=== PATIENT | male | born 1980 | race Caucasian/White ===

== ENCOUNTER 2020-07-05 15:53 | Emergency (ER) | payer OTHER ==
[~2020-07-05] VITALS: Ht 167.6 cm; Wt 54.4 kg
[2020-07-05] MEDS ORDERED: LANTUS SOL100 UNIT/1 (15:58)
[2020-07-05] MEDS ORDERED: HUMALOG100 UNIT/2 (15:58)
[2020-07-05] MEDS ORDERED: NEURONTIN800 MG (15:58)
== END 2020-07-05 21:47 | disposition home or self-care (01) ==
LOC: ER 15:53
DX: E11.65 Type 2 diabetes mellitus with hyperglycemia (principal); R20.0 Anesthesia of skin

== ENCOUNTER 2020-08-22 21:14 | Emergency (ER) | payer OTHER ==
[~2020-08-22] VITALS: Ht 170.2 cm; Wt 54.0 kg
[~2020-08-22 21:14] MED LIST: HUMALOG100 UNIT/2; LANTUS SOL100 UNIT/1; NEURONTIN800 MG
[2020-08-23] MEDS ORDERED: KEFLEX500 MG PO (02:56)
== END 2020-08-23 03:15 | disposition home or self-care (01) ==
LOC: ER 21:14
DX: E11.65 Type 2 diabetes mellitus with hyperglycemia (principal)

== ENCOUNTER 2020-10-28 23:32 | Inpatient (IN) | payer OTHER ==
[~2020-10-28] VITALS: Ht 165.1 cm; Wt 61.7 kg
[~2020-10-28 23:32] MED LIST changes: +KEFLEX500 MG PO
--- NOTE | 2020-10-29 00:17 | NUR ---
PTE REFIERE VENIR POR MAS REBECCA 20 VOMITOS Y RAHUL EPISODIOS DE DIARREAS EN LAS ULTIMAS 24 HRS. REFIERE LLEVA CON VOMITOS DESDE HACE DOS DISLA.
--- NOTE | 2020-10-29 00:46 | NUR ---
PACIENTE ALERTA Y ORIENTADO EN INNA RAHUL ESFERAS. MR. WHITMAN ORIENTA A PACIENTE SOBRE PROCEDIMIENTO Y TX, REFIERE ENTENDER. EXTRAE MUESTRAS DE LABORATORIO CON MEDIDAS ASEPTICAS Y ADMINISTRA MEDICAMENTOS NED ORDEN MEDICA.
--- NOTE | 2020-10-29 02:00 | NUR ---
SE RECIBE PT ALERTA Y ORIENTADO X3 ESFERAS DESDE OBSERVACION ALYSSA DE EMERGENCIAS. PT REFIERE VOMITOS Y DEBILIDAD MUSCULAR GENERALIZADA DESDE HILARY. PT CON HX DE DM TIPO 1, RECUERDA SER DX EN EDAD ELEMENTAL. INDICA ESTA ES LA 4TA OCACION EN IR A ER POR UN DKA. SE UBICA PT EN UNIDAD DE CRITICO, CUBICULO 2. EN CAMA CON BARANDAS ELEVADAS Y FRENOS COLOCADOS. CONECTADO A MONITOR CARDIACO Y SATUROMETRO DE PULSO. 2 VENOPUNCIONES EN BRAZO ALMA PATENTES AMBOS. SE COMIENZA DRIP DE INSULINA 100U/100ML A BAJAR A 3 ML/HRS POR IVPUMP. SE ADMINISTRAN 2 LITROS DE 0.9NSS FULL DRIP. SE REALIZA EKG Y SE PRESENTA A DR MICHELE. PT TRANQUILO Y SIN DIFICULTAD RESPIRATORIA. SE MANTIENE BAJO OBSERVACION POR CAMBIOS EN YAO.
--- NOTE | 2020-10-29 06:06 | NUR ---
PT ALERTA Y ORIENTADO X3 ESFERAS, SE LU MUESTRAS DE MAKSIM CON TECNICAS ASEPTICAS Y SE ENVIAN A LABORATORIO. PT TRANQUILO Y SIN DIFICULTAD RESPIRATORIA. AL MOMENTO S/V ESTABLES. SE DISMINUYE DRIP DE HUMULINA 100U/100ML A 1 ML/HRS POR ORDEN MEDICA DE DR MICHELE. MR CONTRERAS REALIZA ABG, RESULTARON DENTRO LOS PARAMETROS NORMALES.
--- NOTE | 2020-10-29 07:25 | NUR ---
07:AM SE RECIBE PACIENTE MASCULINO DE 40 ANOS DE EDAD UBICADO EN AREA DE CRITICO EN CAMA CON BARANDAS ELEVADAS. PACIENTE AL MOMENTO ES ENTREGADO POR RN- ELDON CUAL ORIENTA SOBRE EL LEA. PACIENTE TIENE ORDEN DE CONSULTA CON MEDIDICNA INTERNA. AL MOEMTNO EL MISMO SE ENCUENTRA CONECTADO A MONITOR CARDIACO Y OXIMETRIA DE PULSO. PACIENTE SE OBSERVA ESTABLE DENTRO DE ROBISON CONDICION Y AL MOMENTO SE ENCUENTRA DESCANSANDO.
--- NOTE | 2020-10-29 09:20 | NUR ---
PACIENTE CONTINUA CON DRIP DE INSULINA REGULAR DE 100 UNIDADES EN 100ML DE .9NSS BAJANDL A 1ML/HRS. AL MOMENTO SE MANTIENE E OBSERVACION POR CAMBIOS EN CONDICION Y CONTINUIDAD DE LEA.
== END 2020-11-01 14:28 | disposition home or self-care (01) | DRG 639 ==
LOC: ER 23:32 → ICU-2 10-29 11:37 → MEDI 10-29 11:37
PROVIDERS: ADMIT Internal Medicine; ATTEND Internal Medicine
DX: E10.10 Type 1 diabetes mellitus with ketoacidosis without coma (principal); Z79.4 Long term (current) use of insulin; Z20.822 Contact with and (suspected) exposure to COVID-19

== ENCOUNTER 2021-12-01 11:46 | Inpatient (IN) | payer OTHER ==
[~2021-12-01] VITALS: Ht 167.6 cm; Wt 56.7 kg
== END 2021-12-04 20:56 | disposition home or self-care (01) | DRG 638 ==
LOC: ER 11:46 → ICU 20:03 → ICU-2 20:03 → ICU 12-02 22:43 → MEDI 12-04 19:37
PROVIDERS: ADMIT Internal Medicine; ATTEND Internal Medicine
PROC: BW21YZZ Computerized Tomography (CT Scan) of Abdomen and Pelvis using Other Contrast (ICD-10-PCS; principal; 2021-12-02)
DX: E10.10 Type 1 diabetes mellitus with ketoacidosis without coma (principal); N17.8 Other acute kidney failure; K52.89 Other specified noninfective gastroenteritis and colitis; E86.0 Dehydration; E87.8 Other disorders of electrolyte and fluid balance, not elsewhere classified; Z20.822 Contact with and (suspected) exposure to COVID-19

== ENCOUNTER 2023-06-17 05:29 | Emergency (ER) | payer OTHER ==
[~2023-06-17] VITALS: Ht 170.2 cm; Wt 57.6 kg
[2023-06-17 06:30] LABS: ABG PH 7.442 (7.35-7.45); ABG PO2 101.1 mmHg (80-100); ABG pCO2 37.1 mmHg (35-45); BASE EXCESS 0.9 mmol/l; BICARBONATE 24.7 mmol/l (23-25); SaO2 98.1 %; Tco2 25.9 mmol/l; allen test SATISFACTORY; o2 21 %; puncture site RADIAL LEFT
[2023-06-17 06:33] LABS: URINE APPEARANCE Clear; URINE BILIRRUBIN Negative (NEGATIVE); URINE BLOOD Negative; URINE COLOR Yellow; URINE LEUKOCYTE Negative; URINE NITRATE Negative; URINE PROTEIN Negative (NEGATIVE)
[2023-06-17 06:36] LABS: URINE RBC 3.2 uL (0.0-20.8)
[2023-06-17 06:47] LABS: URINE BACTERIA 1.2 uL (0.0-1933); URINE GLUCOSE >=1000 MG/DL (NEGATIVE); URINE WBC 0.4 uL (0.0-23.2)
[2023-06-17 07:12] LABS: ALBUMIN 3.9 gm/dL (3.4-5.0); BILIRUBIN TOTAL 0.53 mg/dL (0.3-1.2); CALCIUM 9.1 mg/dL (8.5-10.1); CREATININE SERUM 0.96 mg/dL (0.70-1.30); GFR 84.7; GLOBULINA 3.7 G/DL (2.4-3.5); POTASSIUM 4.37 mEq/L (3.5-5.1); TOTAL PROTEIN 7.6 gm/dL (6.4-8.2)
[2023-06-17 07:17] LABS: HEMATOCRIT 43.6 % (39.0-48.0); HEMOGLOBIN 14.9 g/dL (13-16.00); MEAN CELL VOLUME 94.4 fL (80.0-100.00); MEAN CORPUSCULAR HEMOGLOBIN 32.4 pg (27.00-32.0); MEAN CORPUSCULAR HGB CONC 34.3 g/dl (32.0-36.0); PLATELET COUNT 271 K/uL (150-450); RED BLOOD COUNT 4.62 M/uL (4.00-6.00); RED CELL DISTRIBUTION WIDTH 12.9 % (11.5-14.5)
== END 2023-06-17 11:28 | disposition home or self-care (01) ==
LOC: ER 05:29
DX: E11.65 Type 2 diabetes mellitus with hyperglycemia (principal); Z79.4 Long term (current) use of insulin

== ENCOUNTER 2024-03-10 21:59 | Emergency (ER) | payer OTHER ==
[~2024-03-10] VITALS: Ht 170.2 cm; Wt 58.1 kg
[2024-03-10] MEDS ORDERED: INSULIN REGULAR, HUMAN 1,000 UNIT/10 ML UNITS SUBCUTANEO ONE (22:45)
[2024-03-10] MEDS ORDERED: METOCLOPRAMIDE HCL 10 MG in DEXTROSE 5 % IN WATER 50 ML IV ONE (22:45)
[2024-03-10] MEDS ORDERED: 0.9 % SODIUM CHLORIDE 1,000 ML IV SCH (22:45)
[2024-03-10 23:45] LABS: URINE APPEARANCE Clear; URINE BILIRRUBIN Negative (NEGATIVE); URINE BLOOD Negative; URINE COLOR Yellow; URINE KETONE Trace (NEGATIVE); URINE LEUKOCYTE Negative; URINE NITRATE Negative; URINE PROTEIN Negative (NEGATIVE)
[2024-03-10 23:49] LABS: URINE RBC 6.8 uL (0.0-20.8); URINE WBC 1.8 uL (0.0-23.2)
[2024-03-10 23:50] LABS: HEMATOCRIT 44.9 % (39.0-48.0); HEMOGLOBIN 15.4 g/dL (13-16.00); MEAN CELL VOLUME 94.6 fL (80.0-100.00); MEAN CORPUSCULAR HEMOGLOBIN 32.5 pg (27.00-32.0); MEAN CORPUSCULAR HGB CONC 34.3 g/dl (32.0-36.0); PLATELET COUNT 290 K/uL (150-450); RED BLOOD COUNT 4.75 M/uL (4.00-6.00); RED CELL DISTRIBUTION WIDTH 13.4 % (11.5-14.5)
[2024-03-11 00:05] LABS: URINE BACTERIA 3.7 uL (0.0-1933); URINE EPITHELIAL CELLS 0.7 uL (0.0-38.8); URINE GLUCOSE 500 MG/DL (NEGATIVE)
[2024-03-11 00:22] LABS: ALBUMIN 4.1 gm/dL (3.4-5.0); BILIRUBIN TOTAL 0.47 mg/dL (0.3-1.2); CALCIUM 9.2 mg/dL (8.5-10.1); GFR 130.52; GLOBULINA 3.4 G/DL (2.4-3.5); POTASSIUM 4.7 mEq/L (3.5-5.1); TOTAL PROTEIN 7.5 gm/dL (6.4-8.2)
[2024-03-11 00:34] LABS: CREATININE SERUM 0.66 mg/dL (0.70-1.30)
[2024-03-11 00:37] LABS: BILIRUBIN,CONJUGATED 0.12 mg/dL (0.0-0.2); BILIRUBIN,UNCONJUGATED 0.35 mg/dL (0.0-0.6)
[2024-03-11 02:51] LABS: ABG PH 7.428 (7.35-7.45); ABG PO2 104.1 mmHg (80-100); ABG pCO2 40.4 mmHg (35-45); BASE EXCESS 1.7 mmol/l; BICARBONATE 26.1 mmol/l (23-25); SaO2 98.1 %; Tco2 27.4 mmol/l; allen test SATISFACTORY; o2 21 %; puncture site RADIAL RIGHT
== END 2024-03-11 02:47 ==
LOC: ER 22:00
PROVIDERS: General Practice
DX: E10.65 Type 1 diabetes mellitus with hyperglycemia (principal); Z79.4 Long term (current) use of insulin